=== PATIENT | female | born 1945 | race Caucasian/White ===

== ENCOUNTER → 2017-07-31 | Outpatient (CLI) | payer MEDICARE, MEDICAID ==
[2013-12-19 11:34] VITALS: BMI 27.5
[~2017-07-31] MED LIST: ARI2 PO; ARIP1SOL2 PO; AZIT-18 PO; AZIT500T47 PO; BAC10; CAR100; CIP500 PO; CIT20 PO; FLUO20TA2 PO; FLUO40CA76 PO; GAB300 PO; GABA300S PO; HYDR50CA47 PO; HYDRO25 PO; HYDROCODONE; IPRA4AER IH; LORA0.5T11 FT; METH4TAB57 PO; MULT-1319 PO; NAP500; OXYGENHOME INH; PER PO; PRED-1 PO; PRED20TA6 PO; TIO18R INH; TRAZ-133 PO; TRAZ150T61 PO; VENL75CA58 PO
== END ==
LOC: LAB 11:23
PROVIDERS: ATTEND Internal Medicine
DX: Z79.899 Other long term (current) drug therapy (principal)
CPT/HCPCS: 36415; 82465; 83718; 84443; 84478

== ENCOUNTER → 2018-02-12 | Outpatient (CLI) | payer MEDICARE, MEDICAID ==
[2013-12-19 11:34] VITALS: BMI 27.5
--- NOTE | 2018-02-12 11:52 | RADIOLOGY IMAGING REPORT ---
[place] [facility] [place] NAME: Joshua Vicente : 1945 MR: [id number] V: [id number] EXAM DATE: ORDERING PHYSICIAN: JARED BUTTERFIELD TECHNOLOGIST: Location: [facility] Patient: Joshua Vicente : 1945 Visit/Account:[id number] Date of Sevice: 02/12/[address] scan without contrast HISTORY: Facial pain COMPARISONS: None available at the time of dictation. TECHNIQUE: Non-contrast head CT was performed with sagittal and coronal reformations. One of the following dose optimization techniques was utilized in the performance of this exam: autom ated exposure control; adjustment of the mA and/or kV according to patient size; or use of iterative reconstruction technique. Specific details can be referenced in the facility's radiology CT exam ope rational policy. FINDINGS: There is no intracranial hemorrhage, hydrocephalus or midline shift. The basal cisterns, hawk-white differentiation, and convexity sulci are maintained. Cataract postsurgical change. The mastoid air cells are clear. The paranasal sinuses are clear. The osseous structures are normal . IMPRESSION: No acute intracranial abnormality. Normal head CT. No abnormality seen to explain the patient's symptoms. Report Dictated By: Thaddeus Queen MD at 02/12/2018 11:47 AM Report E-Signed By: Thaddeus Queen MD at 02/12/2018 11:49 AM WSN:[id number]
== END ==
LOC: CT 01:22
PROVIDERS: ATTEND Family Medicine
DX: R51 Headache (principal)
CPT/HCPCS: 70450